=== PATIENT | male | born 1985 | race Hispanic/Latino ===

== ENCOUNTER 2016-09-20 01:00 | Emergency (ER) | payer OTHER ==
--- NOTE | 2016-09-20 01:21 | ED PDOC ---
HPI: Psych/Substance Abuse Time Seen by Provider: 09/20/16 01:07 Chief Complaint (Nursing): Alcohol Ingestion Chief Complaint (Provider): alcohol intoxication History Per: Patient History/Exam Limitations: no limitations Onset/Duration Of Symptoms: Hrs Current Symptoms Are (Timing): Still Present Additional Complaint(s): 31yo male presents to the ED after being found on ground awake, alert, and intoxicated just [employer]. Patient reports he had an episode of vomiting after drinking since work ended. In ED, patient initially uncooperative but able to be redirected. Denies injury, trauma, headache, neck pain, extremity pain. Patient requesting to call brother to provide safe transportation home. Denies medical or surgical hx. Past Medical History Reviewed: Historical Data, Nursing Documentation, Vital Signs - Medical History PMH: No Chronic Diseases - Surgical History Surgical History: No Surg Hx - Family History Family History: States: No Known Family Hx - Allergies Allergies/Adverse Reactions: Allergies Allergy/AdvReac Type Severity Reaction Status Date / Time No Known Allergies Allergy Verified 09/20/16 01:10 Review of Systems ROS Statement: Except As Marked, All Systems Reviewed And Found Negative Constitutional: Positive for: Other (no injury or trauma ) Musculoskeletal: Positive for: Other (no extremity pain ). Negative for: Neck Pain Neurological: Negative for: Headache Physical Exam - Reviewed Nursing Documentation Reviewed: Yes Vital Signs Reviewed: Yes - Physical Exam Appears: Positive for: Well (alcohol on breath but communicative, pressured but non-slurred speech, no signs of trauma ), No Acute Distress Head Exam: Positive for: ATRAUMATIC, NORMAL INSPECTION, NORMOCEPHALIC Skin: Positive for: Normal Color, Warm, Dry Eye Exam: Positive for: Normal appearance, EOMI, PERRL ENT: Positive for: Normal ENT Inspection Neck: Positive for: Normal, Painless ROM, Supple Cardiovascular/Chest: Positive for: Regular Rate, Rhythm. Negative for: Murmur , Tachycardia Respiratory: Positive for: Normal Breath Sounds. Negative for: Wheezing, Respiratory Distress Gastrointestinal/Abdominal: Positive for: Normal Exam, Soft. Negative for: Tenderness Back: Positive for: Normal Inspection Extremity: Positive for: Normal ROM, Other (dried vomit on right thigh ). Negative for: Tenderness, Deformity, Swelling Neurologic/Psych: Positive for: Alert (and awake ), Oriented, Other (strength intact, appears mildly intoxicated but coordination is intact ) Medical Decision Making Medical Decision Makin: Will monitor in ED for sobriety and attempt to find sober friend for safe accompaniment home. [id number]: brother arrived to accompany patient home safely. Patient is ambulatory with intact coordination and clear speech. Scribe Attestation: Documented by Steve Augustin acting as a scribe for Akhil Hernandez III, DO. Provider Scribe Attestation: All medical record entries made by the Scribe were at my direction and personally dictated by me. I have reviewed the chart and agree that the record accurately reflects my personal performance of the history, physical exam, medical decision making, and the department course for this patient. I have also personally directed, reviewed, and agree with the discharge instructions and disposition. Disposition - Clinical Impression Clinical Impression: Alcohol ingestion - Patient ED Disposition Is Patient to be Admitted: No Counseled Patient/Family Regarding: Studies Performed, Diagnosis - Disposition Disposition: Routine/Home Disposition Time: 01:40 Condition: STABLE Instructions: At-Risk Alcohol Use (ED)
== END 2016-09-20 01:44 | disposition home or self-care (01) ==
LOC: H.ER 01:00
DX: F10.129 Alcohol abuse with intoxication, unspecified (principal)